=== PATIENT | female | born 1975 | race Caucasian/White ===

== ENCOUNTER → 2016-07-03 | Outpatient (CLI) | payer OTHER ==
--- NOTE | 2016-07-03 09:11 | REP ---
Clinical: Trauma. Contusion. Technique: AP, lateral, oblique views of the left fourth digit. Findings: No definite acute fracture or dislocation appreciated. No subcutaneous emphysema or radiodense foreign body. Impression: No acute fracture or dislocation. Signed by Magan Mercer MD 07/03/2016 09:03 A
== END ==
LOC: M WUC 08:31
PROVIDERS: ATTEND Physician Assistant
DX: S60.042A Contusion of left ring finger without damage to nail, initial encounter (principal); Y92.89 Other specified places as the place of occurrence of the external cause; Y93.89 Activity, other specified; Y99.8 Other external cause status

== ENCOUNTER → 2016-12-30 | Outpatient (CLI) | payer OTHER ==
[2016-12-30 18:05] LABS: BASO % 0.5 % (0.0-1.0); EOS # 0.2 K/mm3 (0.0-0.50); EOS % 1.9 % (0.0-3.0); LYMPH # 3.4 K/mm3 (1.5-4.5); LYMPH % 30.5 % (24.0-44.0); MEAN CORPUSCULAR HGB CONC 33.1 g/dl (32.0-36.5); MEAN CORPUSCULAR VOLUME 90.6 fl (80.0-96.0); MONO # 0.5 K/mm3 (0.0-0.8); MONO % 4.9 % (0.0-5.0); NEUTROPHILS # 6.3 K/mm3 (1.8-7.7); NEUTROPHILS % 60.3 % (36.0-66.0); RED CELL DISTRIBUTION WIDTH 13.4 % (11.5-14.5); WHITE BLOOD COUNT 10.4 K/mm3 (4.0-10.0)
[2016-12-31 13:37] LABS: FREE T4 0.8 NG/DL (0.76-1.46)
== END ==
LOC: M SMT 15:51
PROVIDERS: ATTEND Physician Assistant
DX: L65.8 Other specified nonscarring hair loss (principal); R06.00 Dyspnea, unspecified